=== PATIENT | female | born 1995 | race Two or more races ===

== ENCOUNTER 2022-04-24 20:18 | Observation (INO) | payer MEDICAID, OTHER ==
[~2022-04-24] VITALS: Ht 167.6 cm; Wt 69.9 kg
[2022-04-24 22:30] LABS: Urine Bacteria FEW /hpf (None Seen); Urine Blood 3+ /uL (Negative); Urine Specific Gravity 1.005 (1.001-1.035); Urine WBC 11 /hpf (0 - 5)
[2022-04-24] MEDS ORDERED: PREN-129 OR (22:39)
[2022-04-24] MEDS ORDERED: NITR-87 PO (22:55)
== END 2022-04-24 23:11 | disposition home or self-care (01) ==
LOC: LDRP 20:18
PROVIDERS: ADMIT Obstetrics & Gynecology; ATTEND Obstetrics & Gynecology
DX: O23.42 Unspecified infection of urinary tract in pregnancy, second trimester (principal); O26.852 Spotting complicating pregnancy, second trimester; Z3A.20 20 weeks gestation of pregnancy; Z88.0 Allergy status to penicillin
CPT/HCPCS: 59025; 81001; 81002; 94760; G0378

== ENCOUNTER 2022-08-07 12:07 | Observation (INO) | payer MEDICAID ==
[~2022-08-07] VITALS: Ht 167.6 cm; Wt 81.6 kg
[~2022-08-07 12:07] MED LIST: NITR-87 PO; PREN-129 OR
[2022-08-07] MEDS ORDERED: LORazepam 2MG/ML-1ML VIAL IV ONE (12:45)
[2022-08-07] MEDS ORDERED: hydrALAZINE HCL 20 MG/ML VL IV PRN (12:45)
[2022-08-07] MEDS ORDERED: MAGNESIUM SULFATE 40MG/ML 1,000 ML IV SCH (12:45)
[2022-08-07] MEDS ORDERED: MAGNESIUM SULFATE 100 ML IV ONE ×2 (12:45→12:56)
[2022-08-07] MEDS ORDERED: LACTATED RINGER'S 1,000 ML IV SCH (12:45)
[2022-08-07] MEDS ORDERED: hydrALAZINE HCL 20 MG/ML VL ONE (12:54)
[2022-08-07] MEDS ORDERED: MAGNESIUM SULFATE 40MG/ML 1,000 ML IV ONE (12:56)
[2022-08-07 13:25] LABS: Basophils # (auto) 0 10 ^3/uL (0-0.2); Basophils % (auto) 0.1 % (0.0-2.0); Eosinophils # (auto) 0.1 10 ^3/uL (0-0.8); Eosinophils % (auto) 1.1 % (0.0-7.0); Hematocrit 34.7 % (36.0-46.0); Hemoglobin 11.6 g/dL (12.2-16.2); Lymphocytes # (auto) 1.6 10 ^3/uL (0.4-5.4); Lymphocytes % (auto) 26.3 % (10.0-50.0); Mean Corpuscular Hemoglobin 30.4 pg (28.0-32.0); Mean Corpuscular Hgb Conc. 33.3 g/dL (32.0-36.0); Mean Corpuscular Volume 91.3 fL (80.0-100.0); Monocytes # (auto) 0.6 10 ^3/uL (0-1.3); Monocytes % (auto) 9.4 % (0.0-12.0); Neutrophils # (auto) 3.9 10 ^3/uL (1.6-8.6); Neutrophils % (auto) 63.1 % (37.0-80.0); Nucleated Red Blood Cells % 0.3 %; Red Blood Cells 3.81 10^6/uL (4.0-5.20); Red Cell Distribution Width 13.4 % (11.8-14.3); White Blood Cell 6.2 10^3/uL (4.4-10.8)
[2022-08-07] MEDS ORDERED: BETAMETHASONE ACET (30mg/5ml) 5ml Vial 6mg/ml IM ONE (13:30)
[2022-08-07 13:31] LABS: INR 0.88 (0.9-1.15); Partial Thromboplastin Time 29.8 sec (24.6-33.4)
[2022-08-07 13:34] LABS: Albumin 2.6 g/dL (3.4-5.0); Calcium 8.7 mg/dL (8.5-10.1); Potassium 3.9 mmol/L (3.5-5.1)
[2022-08-07 13:38] LABS: BUN/Creatinine Ratio 14.5; Bilirubin, Total 0.3 mg/dL (0.2-1.0); Total Protein 5.8 g/dL (6.4-8.2); Uric Acid 6.5 mg/dL (2.6-6.0)
[2022-08-07 14:11] LABS: Amphetamine Screen, Urine NEGATIVE (NEGATIVE); Barbiturate Scree,Urine NEGATIVE (NEGATIVE); Benzodiazephine Screen, Urine NEGATIVE (NEGATIVE); Cannabinoid Screen, Urine NEGATIVE (NEGATIVE); Cocaine Screen, Urine NEGATIVE (NEGATIVE); Opiate Scree,Urine NEGATIVE (NEGATIVE); Phencyclidine Screen, Urine NEGATIVE (NEGATIVE)
[2022-08-07 14:23] LABS: Protein, Urine 83.5 mg/dL (0.0-11.9)
[2022-08-07] MEDS ORDERED: ACETAMINOPHEN 325 MG TAB PO STA (15:04)
[2022-08-07 18:48] LABS: Urine Specific Gravity 1.033 (1.001-1.035)
[2022-08-07 18:49] LABS: Urine Blood 1+ /uL (Negative)
== END 2022-08-07 16:15 | disposition home or self-care (01) ==
LOC: LDRP 12:07 → UNDOADMOB 12:07 → LDRP 12:42 → UNDODISOB 16:15
PROVIDERS: ADMIT Obstetrics & Gynecology; ATTEND Obstetrics & Gynecology
DX: O13.3 Gestational [pregnancy-induced] hypertension without significant proteinuria, third trimester (principal); Z20.822 Contact with and (suspected) exposure to COVID-19; O14.93 Unspecified pre-eclampsia, third trimester; O26.893 Other specified pregnancy related conditions, third trimester; R51.9 Headache, unspecified; H53.8 Other visual disturbances; O21.2 Late vomiting of pregnancy; O26.853 Spotting complicating pregnancy, third trimester; Z3A.35 35 weeks gestation of pregnancy; Z88.0 Allergy status to penicillin; Z79.899 Other long term (current) drug therapy
CPT/HCPCS: 36415; 59025; 76805; 76818; 80053; 80307; 81002; 81003; 82570; 83735; 84156; 84550; 85025; 85610; 85730; 87426; 94760; 96365; 96366; 96372; 96375; G0378; J0360; J0702; J3475; J7050; 96360; 96361; 96374